=== PATIENT | male | born 1980 | race Caucasian/White ===

== ENCOUNTER 2017-10-09 12:30 | Inpatient (IN) | payer OTHER ==
[~2017-10-09] VITALS: Ht 167.6 cm; Wt 97.1 kg
[~2017-10-09 12:30] MED LIST: GLUMETZA1000 MG; HUMULIN 70/30 V10 ML; HUMULIN 70100 UNIT/2 SUBCUTANEO
== END 2017-10-11 14:21 | disposition home or self-care (01) | DRG 346 ==
LOC: ER 12:30 → SEC-K 16:05 → O/R 10-10 15:25 → SURH 10-10 15:59
PROC: 0D9P0ZZ Drainage of Rectum, Open Approach (ICD-10-PCS; principal; 2017-10-09)
DX: K61.1 Rectal abscess (principal); K61.0 Anal abscess; E11.65 Type 2 diabetes mellitus with hyperglycemia

== ENCOUNTER 2023-05-22 21:15 | Emergency (ER) | payer OTHER ==
[~2023-05-22] VITALS: Ht 167.6 cm; Wt 99.8 kg
[2023-05-22 23:45] LABS: PH,URINE 5.5 (5.0-8.0); URINE APPEARANCE Clear; URINE BILIRRUBIN Negative (NEGATIVE); URINE BLOOD Moderate; URINE COLOR Yellow; URINE LEUKOCYTE Negative; URINE NITRATE Negative; URINE PROTEIN 30 (NEGATIVE)
[2023-05-22 23:47] LABS: HEMATOCRIT 42.4 % (39.0-48.0); HEMOGLOBIN 14.5 g/dL (13-16.00); MEAN CELL VOLUME 83.2 fL (80.0-100.00); MEAN CORPUSCULAR HEMOGLOBIN 28.3 pg (27.00-32.0); MEAN CORPUSCULAR HGB CONC 34.1 g/dl (32.0-36.0); PLATELET COUNT 361 K/uL (150-450); RED CELL DISTRIBUTION WIDTH 12.8 % (11.5-14.5)
[2023-05-22 23:48] LABS: URINE BACTERIA 18.8 uL (0.0-1933); URINE EPITHELIAL CELLS 5.5 uL (0.0-38.8); URINE RBC 30.4 uL (0.0-20.8); URINE WBC 9.4 uL (0.0-23.2)
[2023-05-23 00:01] LABS: URINE GLUCOSE >=1000 MG/DL (NEGATIVE)
[2023-05-23 00:08] LABS: INR 0.96; PARTIAL THROMBOPLASTIN TIME 29.6 SECONDS (22.0-34.0); PROTHROMBIN TIME 10.1 SECONDS (9.0-11.5)
[2023-05-23 00:11] LABS: CALCIUM 9.1 mg/dL (8.5-10.1); CREATININE SERUM 1.55 mg/dL (0.70-1.30); GFR 49.42; POTASSIUM 4.26 mEq/L (3.5-5.1)
[2023-05-23] MEDS ORDERED: KETO10TA2 PO (02:27)
[2023-05-23] MEDS ORDERED: CLEOCIN HCL300 MG PO (02:27)
[2023-05-23] MEDS ORDERED: MUPIROCIN1 G1 TOP (02:27)
== END 2023-05-23 03:41 ==
LOC: ER 21:16
PROVIDERS: General Practice
DX: L02.31 Cutaneous abscess of buttock (principal)